=== PATIENT | male | born 1985 | race African-American/Black ===

== ENCOUNTER → 2018-08-15 | Outpatient (REF) | END | disposition home or self-care (01) | DRG 951 | LOC: PAGE 09:00 | PROVIDERS: ATTEND Nurse Practitioner Family | DX: Z02.1 Encounter for pre-employment examination (principal); Z23 Encounter for immunization ==

== ENCOUNTER 2020-04-20 07:14 | Day surgery (SDC) | payer OTHER ==
[~2020-04-20] VITALS: Ht 167.6 cm; Wt 49.9 kg
[~2020-04-20 07:14] MED LIST: [UNRECOGNIZED DRUG - OTHER] PO
[2020-04-20 09:27] VITALS: BP 115/61
--- NOTE | 2020-04-20 14:21 | NUR ---
PER PHYSICIAN; VERBAL NORMAL COLONOSCOPY PROCEDURE RESULTS PROVIDED. ADVISED REPEAT AT AGE 50 AND UP, OR SOONER IF NEW SYMPTOMS, OVER THE COUNTER HEMORRHOID SUPPOSITORIES WITH HYDROCORTISON CREAM TO USE NEEDED FOR SYMPTOMS. PATIENT VERBALIZED UNDERSTANIND OF INFORMATION PROVIDED, REPEATED INSTRUCTIONS VERBALLY. WILL FOLLOW UP WITH PRIMARY CARE DOCTOR. RESULTS FORWARDED TO PRIMARY CARE FOR CONTINUITY OF CARE.
== END 2020-04-20 09:40 | disposition home or self-care (01) | DRG 395 ==
LOC: ENDO 07:14 → ORM 08:45 → ENDO 09:40
PROVIDERS: ATTEND Surgery
PROC: 0DJD8ZZ Inspection of Lower Intestinal Tract, Via Natural or Artificial Opening Endoscopic (ICD-10-PCS; principal; 2020-04-20)
DX: K64.8 Other hemorrhoids (principal); D64.9 Anemia, unspecified; R39.15 Urgency of urination; Z20.828 Contact with and (suspected) exposure to other viral communicable diseases

== ENCOUNTER 2020-07-09 05:39 | Emergency (ER) | payer OTHER ==
[~2020-07-09] VITALS: Ht 167.6 cm; Wt 50.0 kg
[2020-07-09 07:46] LABS: URINE BILIRUBIN - DIPSTICK NEGATIVE (NEGATIVE); URINE BLOOD DIPSTICK TRACE-INTACT (NEGATIVE); URINE COLOR YELLOW; URINE GLUCOSE - DIPSTICK NEGATIVE (NEGATIVE); URINE KETONE NEGATIVE (NEGATIVE); URINE LEUK ESTERASE NEGATIVE (NEGATIVE); URINE NITRITE - DIPSTICK NEGATIVE (Negative); URINE PH 6.5 (4.5-8.0); URINE PROTEIN - DIPSTICK NEGATIVE (NEG-TRACE); URINE SPECIFIC GRAVITY 1.015; URINE UROBILINOGEN - DIPSTICK 0.2 E.U./dL (0.2)
[2020-07-09 08:01] VITALS: BP 127/79
== END 2020-07-09 08:06 | disposition home or self-care (01) | DRG 696 ==
LOC: ED 05:39
PROVIDERS: Emergency Medicine
PROC: 0VJSXZZ Inspection of Penis, External Approach (ICD-10-PCS; principal; 2020-07-09)
DX: R33.9 Retention of urine, unspecified (principal); M41.9 Scoliosis, unspecified

== ENCOUNTER 2021-07-07 10:13 | Observation (INO) | payer OTHER ==
[2021-07-07] VITALS (8 sets, daily range): BP systolic 111–142; BP diastolic 62–83
[~2021-07-07] VITALS: Ht 167.6 cm; Wt 65.0 kg
[2021-07-07 12:57] LABS: HEMATOCRIT 42.4 % (39.0-50.0); HEMOGLOBIN 13.2 g/dl (14.0-18.0); MEAN CELL VOLUME 91.4 fL CALC (80.0-100.0); MEAN CORPUSCULAR HGB 28.4 pG CALC (26.0-32.0); MEAN CORPUSCULAR HGB CONC 31.1 g/dL CAL (32.0-36.0); NEUT# 2.13 thou/uL (1.82-7.42); RED BLOOD COUNT 4.64 mill/uL (4.70-6.10); RED CELL DISTRI WIDTH 11.5 % (11.5-15.5)
[2021-07-07 12:58] LABS: URINE BILIRUBIN - DIPSTICK NEGATIVE (NEGATIVE); URINE BLOOD DIPSTICK MODERATE (NEGATIVE); URINE COLOR YELLOW; URINE GLUCOSE - DIPSTICK NEGATIVE (NEGATIVE); URINE KETONE NEGATIVE (NEGATIVE); URINE LEUK ESTERASE NEGATIVE (NEGATIVE); URINE PROTEIN - DIPSTICK TRACE mg/dL (NEG-TRACE); URINE SPECIFIC GRAVITY 1.015; URINE UROBILINOGEN - DIPSTICK 0.2 E.U./dL (0.2)
[2021-07-07 13:01] LABS: URINE NITRITE - DIPSTICK NEGATIVE (Negative)
[2021-07-07 13:08] LABS: URINE SQUAMOUS EPITHELIAL CELL FEW EPI/hpf (0-FEW); URINE WBC 0-2 WBC/hpf (0-5)
[2021-07-07 13:11] LABS: ANION GAP 13 (6-22 (CALC)); BUN 10 mg/dL (9-20); BUN/CREATININE RATIO 11 (12-20 (CALC)); CARBON DIOXIDE 27 mmol/l (22-30); CHLORIDE 102 mmol/l (95-108); CREATININE 0.9 mg/dL (0.7-1.3); GFR > 60 ML/MIN (>=60 (CALC)); GFR FOR AFR.AMER. > 60 ML/MIN (>=60 (CALC)); SODIUM 138 mmol/l (137-146)
[2021-07-08 04:00] VITALS: BP 104/55
[2021-07-08 06:39] LABS: HEMATOCRIT 37.3 % (39.0-50.0); HEMOGLOBIN 11.8 g/dl (14.0-18.0); MEAN CELL VOLUME 91.2 fL CALC (80.0-100.0); MEAN CORPUSCULAR HGB 28.9 pG CALC (26.0-32.0); MEAN CORPUSCULAR HGB CONC 31.6 g/dL CAL (32.0-36.0); RED BLOOD COUNT 4.09 mill/uL (4.70-6.10); RED CELL DISTRI WIDTH 11.6 % (11.5-15.5)
[2021-07-08 06:45] LABS: ANION GAP 11 (6-22 (CALC)); BUN 6 mg/dL (9-20); BUN/CREATININE RATIO 7 (12-20 (CALC)); CARBON DIOXIDE 24 mmol/l (22-30); CHLORIDE 105 mmol/l (95-108); CREATININE 0.9 mg/dL (0.7-1.3); GFR > 60 ML/MIN (>=60 (CALC)); GFR FOR AFR.AMER. > 60 ML/MIN (>=60 (CALC)); MAGNESIUM 1.6 mg/dL (1.6-2.3); POTASSIUM 3.7 mmol/l (3.5-5.1); SODIUM 137 mmol/l (137-146)
[2021-07-08 11:00] VITALS: BP 130/65
== END 2021-07-08 14:50 | disposition home or self-care (01) | DRG 672 ==
LOC: ED 10:13 → ED-I 11:50 → ED 13:23 → MS2 13:24
PROVIDERS: Family Medicine; ADMIT Hospitalist; ATTEND Hospitalist
PROC: 0TND8ZZ Release Urethra, Via Natural or Artificial Opening Endoscopic (ICD-10-PCS; principal; 2021-07-07)
PROC: 0T9B70Z Drainage of Bladder with Drainage Device, Via Natural or Artificial Opening (ICD-10-PCS; 2021-07-07)
DX: N35.912 Unspecified bulbous urethral stricture, male (principal); N32.89 Other specified disorders of bladder; Z20.822 Contact with and (suspected) exposure to COVID-19
CPT/HCPCS: C1769; G0378; J0131; J1650; J1956; Q9967